=== PATIENT | female | born 1995 | race Two or more races ===

== ENCOUNTER → 2018-10-01 | Outpatient (CLI) | payer OTHER ==
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
--- NOTE | 2018-10-02 08:23 | RADRPT ---
PROCEDURE: XR hip and pelvis CLINICAL INDICATION: Hip pain. TECHNIQUE: 6 weightbearing views of the right hip including pelvis are available for review. COMPARISON: None. FINDINGS: There is no acute fracture or dislocation. There is flattening of the right femoral head with patchy sclerotic changes and moderate osteoarthritic changes of femoral acetabular joint. Left hip joint is unremarkable. Bilateral sacroiliac joints are symmetric and normal. IMPRESSION: 1. Flattening of the right femoral head with patchy sclerotic changes, likely sequela of avascular n ecrosis with associated moderate osteoarthritis of the right hip joint. RPTAT: DD Physician Deepika Date Time Electronically viewed and signed by Physician Deepika on 10/02/2018 08:22 /
== END | disposition home or self-care (01) ==
LOC: HKI 11:45
PROVIDERS: ATTEND Orthopaedic Surgery Adult Reconstructive Orthopaedic Surgery
DX: M25.551 Pain in right hip (principal)
CPT/HCPCS: 73502; Z7500; G0463

== ENCOUNTER → 2018-10-19 | Outpatient (CLI) | payer OTHER ==
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
== END | disposition home or self-care (01) ==
LOC: HKI 14:53
PROVIDERS: ATTEND Orthopaedic Surgery Adult Reconstructive Orthopaedic Surgery
DX: M25.551 Pain in right hip (principal)
CPT/HCPCS: G0463

== ENCOUNTER → 2018-12-21 | Outpatient (CLI) | payer OTHER ==
--- NOTE | 2018-12-21 16:49 | CONS ---
Consult Date/Type/Reason Admit Date/Time Initial Consult Date Date/Time of Note DATE: 12/21/18 TIME: 16:44 Subjective Sherin Mejia is here today with AVN of the right hip. The patient has been having problems for the last several years. The patient's pain is 8/10. The patient is here for preoperative visit. Objective Vitals Weight: 170 pounds Height: 5 feet 5 inches BMI: 28.3 Temperature: 98.2 Heart Rate: 84 Blood Pressure: 137/85 Respiratory Rate: 14 Exam General: Awake, alert, in no acute distress, pleasant and cooperative Heart: regular rhythm Lungs: breathing comfortably, no tachypnea or dyspnea Musculoskeletal: Well developed female in no apparent distress. 3 well-healed small incisions along the lateral aspect of the proximal thigh. There is a well healed incision over the anterior hip classic Rich-Bourne approach. There are no signs of infection such as erythema, fluctuance, tenderness to palpation. Gait demonstrates a non-Trendelenburg with an antalgic components and large short leg component. Standing, the pelvis is oblique and supine there is a true leg length discrepancy, with the right leg 2 cm short. No tenderness over trochanteric bursa or IT band. ----- Range of motion: Flexion: 80 Extension: 0 Internal rotation: 10 External rotation: 30 Abduction: 20 Adduction: 10 degree abduction contracture ----- Sitting there is no pelvic obliquity. Pain at the extremes of motion of the affected hip. Skin was intact throughout both lower extremities. Sensation intact to light touch in a sural, saphenous, deep peroneal, superficial peroneal, medial and lateral plantar nerve distribution. Neurovascular exam showed 5/5 strength in the abductors, quads, EHL/tibialis anterior/gastroc. Normal and symmetrical pulses were palpated in both the dorsalis pedis and posterior tibial arteries. There is no sign of venous stasis. Results/Medications Imaging The patient received a full set of films and personally reviewed by myself today in clinic including an AP pelvis and an AP and lateral of the affected hip. The hip is reduced. There is complete loss of joint space. With avascular necrosis and collapse of the femoral head. Rami are intact with no signs of previous fracture. Pubic symphysis is intact. SI joints are intact. There is osteophyte formation. There is subchondral sclerosis. There are subchondral cysts. There is no significant deformity of the the proximal femur, femoral neck. The pelvis is in continuity. Bone quality radiographically: good. Assessment/Plan Hospital Course (Demo Recall) The patient has AVN with femoral collapse of the right hip. The patient does want to proceed with a right total hip arthroplasty. Benefits and risks reviewed with the patient. Emphasis was placed on the high likely need of revision in the future because of where secondary to her young age. Medical Clearance pending. ----- A lengthy discussion was held, where the patient was told that if and when the symptoms are intolerable, elective total hip replacement should be considered. The operative procedure was explained using diagrams and/or three-dimensional models. The rehabilitation, the potential risks, benefits and alternatives were discussed at length. Specific risks discussed included but were not limited to excessive blood loss and the need for transfusion and therefore the risk of transmissible disease or transfusion reaction, deep infection and the potential need for repetitive debridements, implant removal, long-term antibiotic therapy, possibly requiring deep venous access, leg-length discrepancy, dislocation, possibly recurrent, with the need for closed versus open reduction, bracing, femoral or acetabular fracture and the need for further surgery for fixation, neurovascular injury with temporary or permanent numbness, tingling, weakness or paralysis, deep venous thrombosis, pulmonary embolism and , persistent pain, weakness, or limp, late aseptic loosening and the need for revision, polyethylene wear-induced osteolysis and related problems, and finally, a wide variety of unanticipated medical problems. The opportunity to ask questions and address any concerns was provided. The patient would like to proceed with scheduling. Face to Face Evaluation for Home Health Care: This is to certify that after date of planned surgery patient will be in need of intermittent retirement care, physical therapy and/or occupational therapy as patient will be home bound. This patient is under my care and I have authorized the services on this plan of care and will periodically review the plan. Plan: Right ABDIAZIZ VTE risk stratification: Average VTE prophylaxis: ASA 81 mg twice daily Diabetes management: None Pain control: Standard Telemetry: No MRSA: Pending JH FOOTE MD Dec 21, 2018 16:49
--- NOTE | 2018-12-23 11:17 | RADRPT ---
PROCEDURE: XR right Hip and pelvis. CLINICAL INDICATION: Hip pain. TECHNIQUE: AP and frog leg lateral views of the right hip and AP view of the pelvis were obtained. COMPARISON: None. FINDINGS: Osseous structures are intact. Again noted is flattening of the right femoral head with patchy sclero tic changes similar to the prior exam. Moderate degenerative changes of the right hip joint are again noted. The left hip joint appears normal. No soft tissue abnormalities are seen. IMPRESSION: 1. Flattening of the right femoral head with patchy sclerosis, similar to the prior examination and l ikely representing avascular necrosis. Moderate degenerative changes of the right hip, unchanged. RPTAT: AAEE Physician Harry Date Time Electronically viewed and signed by Physician Harry on 12/23/2018 11:17 RF/
== END | disposition home or self-care (01) ==
LOC: HKI 13:54
PROVIDERS: ATTEND Orthopaedic Surgery Adult Reconstructive Orthopaedic Surgery
DX: Z01.818 Encounter for other preprocedural examination (principal)
CPT/HCPCS: 73502; Z7500; G0463

== ENCOUNTER 2018-12-29 05:43 | Inpatient (IN) | payer OTHER ==
[2018-12-24 13:42] VITALS: BMI 25.9
[2018-12-28 12:00] VITALS: BMI 26.7
[2018-12-29] VITALS (28 sets, daily range): BP systolic 96–124; BP diastolic 41–74; PULSE 72–130; RESP 11–24; Ht 165.1 cm; Wt 74.1 kg
[~2018-12-29] VITALS: Ht 165.1 cm; Wt 74.1 kg
[2018-12-29] MEDS ORDERED: ACETAMINOPHEN 1000MG/100ML IV 100 ML IVPB ONE (06:30)
[2018-12-29] MEDS ORDERED: POLYMYXIN/BACITRACIN 1L IRRIG ONE (06:46)
[2018-12-29] MEDS ORDERED: LACTATED RINGER'S 1,000 ML IV* SCH (07:00)
[2018-12-29] MEDS ORDERED: DESFLURANE 15 MIN ONE (07:00)
[2018-12-29] MEDS ORDERED: CEFAZOLIN 2 GM/50 ML (PMX) 50 ML IVPB ONE (07:00)
[2018-12-29] MEDS ORDERED: TRANEXAMIC ACID 1GM/100ML(PMX) 100 ML AT CLOSING IVPB ONE (07:00)
[2018-12-29] MEDS ORDERED: CELECOXIB 200 MG CAP PO ONE (07:00)
[2018-12-29] MEDS ORDERED: DEXAMETHASONE 4 MG/ML 1 ML INJ IV ONE (07:00)
[2018-12-29] MEDS ORDERED: ONDANSETRON 4 MG INJ IV ONE (07:00)
[2018-12-29] MEDS ORDERED: ACETAMINOPHEN 500 MG TAB PO ONE (07:00)
[2018-12-29] MEDS ORDERED: LANSOPRAZOLE 30 MG CAP PO ONE (07:00)
--- NOTE | 2018-12-29 07:16 | PREAC ---
Date/Time of Note Date/Time of Note DATE: 12/29/18 TIME: 07:15 Anesthesia Eval and Record Evaluation Time Pre-Procedure Interview DATE: 12/29/18 TIME: 07:15 Age 23 Sex female NPO: 8 hrs Preoperative diagnosis R Hip OA Planned procedure R THR Past Medical History Past Medical History: Includes GI: Obesity Surgery & Anesthesia Issues No known issue Meds Anticoagulation: No Beta Luis within 24 hr: No Reason Beta Luis not given: Pt. not on B-Luis No Active Prescriptions or Reported Meds Current Medications Lactated Ringer's 1,000 ml @ 125 mls/hr Q8H IV* ; Start 12/29/18 at 07:00; Stop 12/29/18 at 19:00 Cefazolin Sodium/ Dextrose 50 ml @ 100 mls/hr PRE-OP ONCE IVPB ; Start 12/29/18 at 07:00; Stop 12/29/18 at 07:29 Tranexamic Acid 100 ml @ 200 mls/hr PRE-OP ONCE IVPB ; Start 12/29/18 at 07:00; Stop 12/29/18 at 07:29 Tranexamic Acid 100 ml @ 200 mls/hr AT CLOSING ONCE IVPB ; Start 12/29/18 at 07:00; Stop 12/29/18 at 07:29 Ropivacaine/ Clonidine/ Epinephrine/ Ketorolac Tromethamine/ Sodium Chloride INTRA-OP INJ ; Start 12/29/18 at 16:30; Stop 12/29/18 at 19:00 Meds reviewed: Yes Allergies Coded Allergies: No Known Allergy (Unverified , 12/29/18) Allergies Reviewed: Yes Labs/Studies Labs Reviewed: Reviewed by anesthesiologist Blood Bank Test 12/28/18 12:09 Antibody Screen NEGATIVE Blood Type A POSITIVE test: Negative Pre-procedure Exam Last vitals Vital Signs Date Temp Pulse Resp B/P (MAP) Pulse Ox O2 O2 Flow FiO2 Time Delivery Rate 12/29/18 97.8 85 18 124/74 98 06:48 (91) Airway: Adequate mouth opening, Adequate thyromental dist Mallampati: Mallampati II Teeth: Normal Lung: Normal Heart: Normal ASA Physical Status ASA physical status: 2 Emergency: None Planned Anesthetic General/MAC: ETT Neuraxial: Spinal Planned Pain Management Sub-arachniod narcotics Pre-operative Attestations Prior to commencing anesthesia and surgery, the patient was re-evaluated, there was verification of: *The patient's identity *The results of appropriate recent lab work and preoperative vital signs *The above evaluation not changing prior to induction *Anesthetic plan, risk benefits, alternative and complications discussed with patient/family; questions answered; patient/family understands, accepts and wis hes to proceed. APRIL SHARIF Dec 29, 2018 07:16
--- NOTE | 2018-12-29 07:21 | HPN ---
Date/Time of Note Date/Time of Note DATE: 12/29/18 TIME: 07:21 Interval H&P Admission Note Pt. seen H&P reviewed: No system changes Patient denies fever, chills, shortness of breath, chest pain, nausea/vomiting, constipation, diarrhea, numbness, and tingling. MUSCULOSKELETAL: Right extremity Skin intact Sensation intact to light touch in a sural, saphenous, deep peroneal, superficial peroneal, medial and lateral plantar nerve distribution. Motor is intact, patient able to dorsiflex and plantarflex ankle and extend and flex great toe. Dorsalis Pedis pulse +2, Brisk capillary refill. Compartments are soft. Calves non-tender to palpation bilaterally. JH FOOTE MD Dec 29, 2018 07:21
[2018-12-29] MEDS ORDERED: MIDAZOLAM 1 MG/ML 2 ML INJ ONE ×2 (07:26→10:52)
[2018-12-29] MEDS ORDERED: morphine SULFATE/PF (10 MG/10 ML) INJ ONE (07:28)
[2018-12-29] MEDS ORDERED: ALBUTEROL 0.083% (NEB) 2.5 MG/3 ML AMP HHN PRN (07:30)
[2018-12-29] MEDS ORDERED: ONDANSETRON 4 MG INJ IV PRN (07:30)
[2018-12-29] MEDS ORDERED: MEPERIDINE 25 MG INJ IV PRN (07:30)
[2018-12-29] MEDS ORDERED: METOCLOPRAMIDE 10 MG INJ IV PRN (07:30)
[2018-12-29] MEDS ORDERED: HYDROmorphONE 1 MG/5 ML IV SYRINGE IV PRN ×2 (07:30)
[2018-12-29] MEDS ORDERED: FENTAnyl 50 MCG/ML VIAL IV PRN ×3 (07:30)
[2018-12-29] MEDS ORDERED: VANCOMYCIN 1 GM (PMX) 250 ML ONE (07:31)
[2018-12-29] MEDS ORDERED: PHENYLephrine 10 MG INJ ONE (07:51)
[2018-12-29] MEDS ORDERED: VANCOMYCIN 1 GM (PMX) 250 ML IVPB ONE (08:00)
[2018-12-29] MEDS: TRANEXAMIC ACID 1GM/100ML(PMX) 100 ML PRE-OP IVPB ONE ×2 (08:35→10:53)
[2018-12-29] MEDS ORDERED: POLYMYXIN/BACITRACIN 1L IRRIG IRR ONE (08:53)
[2018-12-29] MEDS ORDERED: SUCCINYLCHOLINE CHLORIDE 100 MG/5 ML SYG IV ONE (09:03)
[2018-12-29] MEDS ORDERED: LIDOCAINE 1% (MDV) 20 ML INJ ONE (09:03)
[2018-12-29] MEDS ORDERED: ROCURONIUM 50 MG INJ ONE (09:03)
[2018-12-29] MEDS ORDERED: CEFAZOLIN 1 GM INJ ONE (09:03)
[2018-12-29] MEDS ORDERED: PROPOFOL 20 ML ONE (09:03)
[2018-12-29] MEDS ORDERED: SUGAMMADEX SODIUM 200 MG/2 ML VIAL IV ONE (12:01)
[2018-12-29] MEDS: DIPHENHYDRAMINE 50 MG INJ IV PRN ×2 (12:24→12:55)
[2018-12-29] MEDS: LACTATED RINGER'S 1,000 ML IV SCH ×2 (12:27→17:35)
[2018-12-29] MEDS ORDERED: DOCUSATE SODIUM 100 MG CAP PO ONE ×2 (12:30→13:29)
[2018-12-29] MEDS ORDERED: NALOXONE (0.4 MG/ML) INJ IV PRN (12:30)
[2018-12-29] MEDS ORDERED: MAGNESIUM HYDROXIDE 30ML CUP PO PRN (12:30)
[2018-12-29] MEDS ORDERED: NACL 0.9% 3 ML SYG IV SCH (12:30)
[2018-12-29] MEDS: HYDROmorphONE 1 MG/5 ML IV SYRINGE IV PRN ×2 (12:30→12:37)
[2018-12-29] MEDS ORDERED: NA PHOSPHATE/BIPHOS 133 ML ENEMA PR PRN (12:30)
[2018-12-29] MEDS ORDERED: oxyCODONE 5 MG TAB PO PRN (12:30)
[2018-12-29] MEDS ORDERED: DIPHENHYDRAMINE 50 MG INJ IV PRN (12:30)
[2018-12-29] MEDS ORDERED: BETHANECHOL 25 MG TAB PO PRN (12:30)
[2018-12-29] MEDS ORDERED: BISACODYL 10 MG SUPP PR PRN (12:30)
[2018-12-29] MEDS: CEFAZOLIN 2 GM/50 ML (PMX) 50 ML IVPB SCH ×2 (13:26→22:05)
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
[2018-12-29] MEDS: VANCOMYCIN 1 GM (PMX) 250 ML IVPB SCH (17:19)
[2018-12-29] MEDS: GABAPENTIN 300 MG CAP PO SCH (22:05)
[2018-12-29] MEDS: HYDROmorphONE 1 MG/ML SYG IV PRN (22:13)
[2018-12-29] MEDS: KETOROLAC 15 MG INJ IV PRN (23:33)
[2018-12-30 00:10] VITALS: BP 112/56; PULSE 83; RESP 19
[2018-12-30] MEDS: HYDROmorphONE 1 MG/ML SYG IV PRN (04:44)
[2018-12-30] MEDS: KETOROLAC 15 MG INJ IV PRN ×2 (04:44→10:40)
[2018-12-30] MEDS: CEFAZOLIN 2 GM/50 ML (PMX) 50 ML IVPB SCH (06:00)
[2018-12-30] MEDS: PANTOPRAZOLE (EC) 40 MG TAB PO SCH (06:35)
[2018-12-30] MEDS: VANCOMYCIN 1 GM (PMX) 250 ML IVPB SCH (06:35)
[2018-12-30] MEDS ORDERED: DEXAMETHASONE 10 MG/ML 1 ML INJ IV ONE (07:00)
--- NOTE | 2018-12-30 07:21 | PAC ---
Date/Time of Note Date/Time of Note DATE: 12/30/18 TIME: 07:21 Post-Anesthesia Notes Post-Anesthesia Note Last documented vital signs Vital Signs Date Temp Pulse Resp B/P (MAP) Pulse Ox O2 O2 Flow FiO2 Time Delivery Rate 12/30/18 98.3 83 19 112/56 99 00:10 (74) 12/29/18 Room Air 16:35 Activity: WNL Respiratory function: WNL Cardiovascular function: WNL Mental status: Baseline Pain reasonably controlled: Yes Hydration appropriate: Yes Nausea/Vomiting absent: Yes APRIL SHARIF Dec 30, 2018 07:21
[2018-12-30] MEDS ORDERED: CEFAZOLIN 2 GM/50 ML (PMX) 50 ML IVPB SCH (07:30)
[2018-12-30 08:20] VITALS: BP 114/55; PULSE 95; RESP 18
--- NOTE | 2018-12-30 08:58 | PN ---
Date/Time of Note Date/Time of Note DATE: 12/30/18 TIME: 08:51 Assessment/Plan Lines/Catheters IV Catheter Type (from Nrsg): Peripheral IV Hyatt in Place (from Nrsg): No Assessment/Plan Chief Complaint/Hosp Course POD#1 s/p primary right ABDIAZIZ. -Post op H&H stable -PT/OT. Posterior Hip Precautions -Joints pain control protocol -DVT prophylaxis: SCD's, ASA 81 mg twice daily -Weight bearing status: as tolerated -Post-op XR ordered -Abx: 24h vanc/ancef -Diet: ADAT -Hyatt: DC'd today -Discharge planning consult Planned Discharge Date: Today versus tomorrow Discharge to home with home health Subjective 24 Hr Interval Summary Patient doing well No acute events overnight Pain is moderately well controlled Exam/Review of Systems Vital Signs Vitals Vital Signs Date Temp Pulse Resp B/P (MAP) Pulse Ox O2 O2 Flow FiO2 Time Delivery Rate 12/30/18 98.8 95 18 114/55 99 08:20 (74) 12/29/18 Room Air 16:35 Intake and Output 12/29/18 12/29/18 12/30/18 1515:00 23:00 07:00 IntakeIntake Total 2900 ml 850 ml 1070 ml OutputOutput Total 1300 ml 1450 ml 1000 ml BalanceBalance 1600 ml -600 ml 70 ml Exam Free Text/Dictation Right lower extremity: Dressing: clean, dry, and intact, no erythema Sensation intact to light touch in a sural, saphenous, deep peroneal, superficial peroneal, medial and lateral plantar nerve distribution. Motor is intact, patient able to dorsiflex and plantarflex ankle and extend and flex great toe. Dorsalis Pedis pulse +2, Brisk capillary refill. Compartments are so ft. Calves non-tender to palpation bilaterally. Results Result Diagram: 12/30/18 0450 12/30/18 0450 JH FOOTE MD Dec 30, 2018 08:58
[2018-12-30] MEDS ORDERED: DOCUSATE SODIUM 100 MG CAP PO SCH (09:00)
[2018-12-30] MEDS: ASPIRIN (EC) 81 MG TAB PO SCH ×2 (09:26→21:35)
[2018-12-30] MEDS: oxyCODONE 5 MG TAB PO PRN ×4 (09:27→21:36)
[2018-12-30] MEDS: DOCUSATE SODIUM 100 MG CAP PO SCH ×2 (09:34→21:36)
[2018-12-30] MEDS ORDERED: POTASSIUM CHLORIDE (SR) 20 MEQ TAB PO STA (11:50)
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
[2018-12-30] MEDS ORDERED: ONDANSETRON 4 MG INJ IV PRN (12:30)
[2018-12-30] MEDS: LACTATED RINGER'S 1,000 ML IV SCH (12:42)
[2018-12-30] MEDS: ACETAMINOPHEN 500 MG TAB PO SCH ×2 (13:28→21:36)
[2018-12-30 15:42] VITALS: BP 113/58; PULSE 95; RESP 18
[2018-12-30 20:30] VITALS: BP 111/58; PULSE 85; RESP 18
[2018-12-30] MEDS: GABAPENTIN 300 MG CAP PO SCH (21:35)
[2018-12-31 02:04] VITALS: BP 106/56; PULSE 84; RESP 18
[2018-12-31] MEDS: PANTOPRAZOLE (EC) 40 MG TAB PO SCH (05:18)
[2018-12-31] MEDS: ACETAMINOPHEN 500 MG TAB PO SCH ×3 (05:18→21:45)
[2018-12-31] MEDS: oxyCODONE 5 MG TAB PO PRN ×4 (07:27→19:50)
[2018-12-31] MEDS: DOCUSATE SODIUM 100 MG CAP PO SCH ×2 (07:43→20:21)
[2018-12-31] MEDS: ASPIRIN (EC) 81 MG TAB PO SCH ×2 (07:43→20:21)
[2018-12-31] MEDS: SENNA/DOCUSATE NA (8.6MG/50MG) TAB PO PRN (07:58)
[2018-12-31 08:13] VITALS: BP 106/62; PULSE 87; RESP 18
--- NOTE | 2018-12-31 08:13 | PN ---
Date/Time of Note Date/Time of Note DATE: 12/31/18 TIME: 08:06 Assessment/Plan Lines/Catheters IV Catheter Type (from Nrs): Saline Lock Hyatt in Place (from Nrs): No Assessment/Plan Chief Complaint/Hosp Course POD#2 s/p primary right ABDIAZIZ. This morning the patient is having chest pain. It is difficult for her to take a deep breath. Vitals are stable. Her oxygen saturation is within normal limits without any O2 supplementation. Blood pressure stable. She is not tachycardic. Of note the patient has not had a bowel movement in 3 days. She is never had this pain before. She has acute anemia secondary to postoperative blood loss and hemodilution. At this time I would not recommend a blood transfusion secondary to increased risk of infection, the patient's vitals are stable. We will continue to monitor hemoglobin closely to determine if he continues to decrease. If cardiac workup is negative and patient continues to have symptoms we will likely request a CT angiogram to evaluate and rule out a pulmonary embolism. -Medicine has ordered EKG, chest x-ray, troponins. We will continue to follow for this chest pain. -Post op H&H will continue to be monitored -PT/OT. Posterior Hip Precautions -Joints pain control protocol -DVT prophylaxis: SCD's, ASA 81 mg twice daily -Weight bearing status: as tolerated -Post-op XR ordered -Abx: 24h vanc/ancef -Diet: ADAT -Hyatt: DC'd -Discharge planning consult Planned Discharge Date: To be determined Discharge to home with home health Subjective 24 Hr Interval Summary Patient did very well yesterday. Pain was well controlled yesterday. She did well with physical therapy. However this morning she began to complain of chest pain and epigastric pain. States it is difficult for her to take a deep breath. The patient's vitals remained stable the nursing staff alerted medicine who then ordered several tests to workup chest pain. Exam/Review of Systems Vital Signs Vitals Vital Signs Date Temp Pulse Resp B/P (MAP) Pulse Ox O2 O2 Flow FiO2 Time Delivery Rate 12/31/18 98.2 84 18 106/56 97 02:04 (73) 12/29/18 Room Air 16:35 Intake and Output 12/30/18 12/30/18 12/31/18 1515:00 23:00 07:00 IntakeIntake Total 900 ml 920 ml 200 ml BalanceBalance 900 ml 920 ml 200 ml Exam Free Text/Dictation Right lower extremity: Dressing: clean, dry, and intact, no erythema Sensation intact to light touch in a sural, saphenous, deep peroneal, superficial peroneal, medial and lateral plantar nerve distribution. Motor is intact, patient able to dorsiflex and plantarflex ankle and extend and flex great toe. Dorsalis Pedis pulse +2, Brisk capillary refill. Compartments are soft. Calves non-tender to palpation bilaterally. Results Result Diagram: 12/31/18 0447 12/31/18 0447 JH FOOTE MD Dec 31, 2018 08:13
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
[2018-12-31] MEDS: SOD FERRIC GLUC COMPLX 125 MG in SOD CHLORIDE 0.9% 100 ML IVPB SCH (15:12)
[2018-12-31 15:39] VITALS: BP 111/55; PULSE 108; RESP 18
[2018-12-31 20:05] VITALS: BP 118/69; PULSE 101; RESP 18
[2018-12-31] MEDS: GABAPENTIN 300 MG CAP PO SCH (20:21)
[2019-01-01] MEDS: oxyCODONE 5 MG TAB PO PRN ×5 (00:07→15:28)
[2019-01-01 03:46] VITALS: BP_SYST 115; BP_DIAS 59; BP_DIAS 89; PULSE 100; RESP 18
[2019-01-01] MEDS: ACETAMINOPHEN 500 MG TAB PO SCH ×2 (06:21→14:00)
[2019-01-01] MEDS: PANTOPRAZOLE (EC) 40 MG TAB PO SCH (06:21)
[2019-01-01 07:35] VITALS: BP 117/78; PULSE 92; RESP 19
--- NOTE | 2019-01-01 07:41 | PN ---
Date/Time of Note Date/Time of Note DATE: 01/01/19 TIME: 07:36 Assessment/Plan Lines/Catheters IV Catheter Type (from Nrsg): Saline Lock Hyatt in Place (from Nrsg): No Assessment/Plan Chief Complaint/Hosp Course POD#3 s/p primary right ABDIAZIZ. The patient's chest pain completely resolved after a bowel movement yesterday. She denies any chest pain, shortness of breath, lightheadedness, dizziness. She is able to participate in physical therapy without any dizziness, lightheadedness, or shortness of breath. She does have acute on chronic anemia secondary to blood loss. She is asymptomatic. -Post op H&H is stable. Overall minimal change since postop day 1. Patient receiving IV iron while admitted. Will be discharged on oral iron supplement. -PT/OT. Posterior Hip Precautions -Joints pain control protocol -DVT prophylaxis: SCD's, ASA 81 mg twice daily -Weight bearing status: as tolerated -Post-op XR ordered -Discharge planning consult Planned Discharge Date: Today Discharge to home with home health Subjective 24 Hr Interval Summary Patient doing well No acute events overnight Pain is well controlled. Chest pain resolved yesterday after bowel movement.. Patient denies any dizziness or lightheadedness when ambulating. Exam/Review of Systems Vital Signs Vitals Vital Signs Date Temp Pulse Resp B/P (MAP) Pulse Ox O2 O2 Flow FiO2 Time Delivery Rate 01/01/19 98.8 100 18 115/89 98 03:46 (98) 12/31/18 6.0 15:39 12/31/18 Nasal 08:13 Cannula Intake and Output 12/31/18 12/31/18 01/01/19 1515:00 23:00 07:00 IntakeIntake Total 240 ml 825 ml 100 ml OutputOutput Total 750 ml 1900 ml 1000 ml BalanceBalance -510 ml -1075 ml -900 ml Exam Free Text/Dictation Right lower extremity: Dressing: clean, dry, and intact, no erythema. Thigh is swollen. Sensation intact to light touch in a sural, saphenous, deep peroneal, superficial peroneal, medial and lateral plantar nerve distribution. Motor is intact, patient able to dorsiflex and plantarflex ankle and extend and flex great toe. Dorsalis Pedis pulse +2, Brisk capillary refill. Compartments are soft. Calves non-tender to palpation bilaterally. Results Result Diagram: 01/01/19 0435 01/01/19 0435 HJ FOOTE MD Jan 01, 2019 07:41
--- NOTE | 2019-01-01 07:43 | PDOCDIS ---
Discharge Instructions CONDITION [id number] Patient Condition: [id number] Good - Patient and patient's mother was instructed to return the hospital if she is having chest pain, shortness of breath, dizziness that does not resolve. Patient was also handed [facility] hip and knee total hip arthroplasty patient instruction handout. HOME CARE INSTRUCTIONS: [id number] Diet Instructions: [id number] Regular ACTIVITY: [id number] Activity Restrictions: [id number] Slowly Increase Activity Avoid heavy lifting Weight Bearing (Posterior hip precautions) [id number] Bathing Restrictions: [id number] Shower FOLLOW UP/APPOINTMENTS Follow-up Plan 2 weeks JH FOOTE MD Jan 01, 2019 07:43
[2019-01-01] MEDS ORDERED: OXYC-481 PO (07:47)
[2019-01-01] MEDS ORDERED: Acetaminophen PO (07:47)
[2019-01-01] MEDS ORDERED: ASPI-1044 PO (07:47)
[2019-01-01] MEDS ORDERED: GABA300C16 PO (07:47)
[2019-01-01] MEDS ORDERED: DOCU-144 PO ×2 (07:47→10:57)
[2019-01-01] MEDS ORDERED: FERR325T5 PO ×2 (07:49→10:57)
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
[2019-01-01] MEDS: DOCUSATE SODIUM 100 MG CAP PO SCH (08:50)
[2019-01-01] MEDS: ASPIRIN (EC) 81 MG TAB PO SCH (08:50)
[2019-01-01] MEDS ORDERED: UDMOM PO (10:57)
[2019-01-01] MEDS ORDERED: SIME80TA60 PO (10:59)
[2019-01-01] MEDS: SENNA/DOCUSATE NA (8.6MG/50MG) TAB PO PRN (11:57)
[2019-01-01] MEDS: SOD FERRIC GLUC COMPLX 125 MG in SOD CHLORIDE 0.9% 100 ML IVPB SCH (12:55)
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
[2019-01-01 15:30] VITALS: BP 122/73; PULSE 116; RESP 18
== END 2019-01-01 15:35 | disposition home health service (06) | DRG 470 ==
LOC: INTOOBSV 05:43 → REC 05:43 → MS1 13:40 → OBSVTOIN 23:21
PROVIDERS: ADMIT Orthopaedic Surgery Adult Reconstructive Orthopaedic Surgery; ATTEND Orthopaedic Surgery Adult Reconstructive Orthopaedic Surgery
PROC: 0SR904A Replacement of Right Hip Joint with Ceramic on Polyethylene Synthetic Substitute, Uncemented, Open Approach (ICD-10-PCS; principal; 2018-12-29 07:30)
DX: M87.251 Osteonecrosis due to previous trauma, right femur (principal); D62 Acute posthemorrhagic anemia; E66.9 Obesity, unspecified; Z68.27 Body mass index [BMI] 27.0-27.9, adult; M16.11 Unilateral primary osteoarthritis, right hip; E87.6 Hypokalemia; R07.89 Other chest pain; K59.00 Constipation, unspecified; Z79.82 Long term (current) use of aspirin
CPT/HCPCS: 71045; 72170; 73500; 73530; 80048; 81003; 83540; 84484; 85014; 85018; 85025; 85610; 86850; 86900; 86901; 86920; 87081; 87086; 88304; 88311; 93005; 97110; 97116; 97162; 97165; 97530; 97535; 99217; C1713; C1776; G0378; J0131; J0171; J0690; J0735; J1100; J1170; J1200; J1885; J2250; J2274; J2405; J2795; J2916; J3370; J7120

== ENCOUNTER → 2019-01-11 | Outpatient (CLI) | payer OTHER ==
[~2019-01-11] MED LIST: ASPI-1044 PO; Acetaminophen PO; DOCU-144 PO; FERR325T5 PO; GABA300C16 PO; OXYC-481 PO; SIME80TA60 PO; UDMOM PO
--- NOTE | 2019-01-11 15:40 | CONS ---
Consult Date/Type/Reason Admit Date/Time Initial Consult Date Date/Time of Note DATE: 01/11/19 TIME: 15:34 Subjective DOS: 12/29/18 Procedure: Right ABDIAZIZ 2 weeks s/p right ABDIAZIZ for traumatic AVN who returns today for follow up. The patient is doing well overall. Pain is moderate. She complains of groin pain as well as anterior knee pain. She had anterior knee pain prior to surgery however states it feels worse now. Feels that the operative leg is longer than the nonoperatively. Narcotic Pain medication: Yes, oxycodone Gait Aids: Walker Pain better than before surgery: At times Pleased with outcome. Objective Vitals Weight: 162 pounds Height: 5 feet 5 inches Temperature: 90.4 Heart Rate: 94 Blood Pressure: 134/62 Respiratory Rate: 12 Exam General: Alert, oriented x3. No Acute Distress. Heart: Regular rate and rhythm. Lungs: No respiratory distress. No accessory muscle use. MUSCULOSKELETAL: Right lower Extremity: Incision well-healed. No skin breakdown, no surrounding erythema. Sensation intact to light touch in a sural, saphenous, deep peroneal, superficial peroneal, medial and lateral plantar nerve distribution. Motor is intact, patient able to dorsiflex and plantarflex ankle and extend and flex great toe. Dorsalis Pedis pulse +2, Brisk capillary refill. Compartments are soft. Tender to palpation over the patella tendon. Remainder of knee is nontender. No effusion. Full range of motion of the knee. Knee is stable. Rises from seated position without difficulty. Gait: Moderate pace. Mild limp. Old mild Trendelenburg. Old walker for gait aids. Results/Medications Home Meds Active Scripts Simethicone* (Mylicon*) 80 Mg Tab, 80 MG PO TID PRN for .GAS for 30 Days, #90 TAB Prov:NABIL ANGEL MD 01/01/19 Magnesium Hydroxide* (Mcintyre' MOM*) 30 Ml Susp, 30 ML PO HS PRN for .CONSTIPATION for 30 Days, #1 BOTTLE Prov:NABIL ANGEL MD 01/01/19 Ferrous Sulfate (Ferrous Sulfate) 325 Mg Tablet.dr, 325 MG PO BID for 30 Days, #60 TAB 1 Refill Prov:NABIL ANGEL MD 01/01/19 Docusate Sodium* (Colace*) 100 Mg Capsule, 200 MG PO BID PRN for CONSTIPATION for 20 Days, #40 CAP Prov:NABIL ANGEL MD 01/01/19 Oxycodone Hcl* (IR) (Roxicodone*) 5 Mg Tab, 5 MG PO Q4H PRN for .PAIN, #90 TAB Prov:JH FOOTE MD 01/01/19 Gabapentin* (Gabapentin*) 300 Mg Capsule, 300 MG PO QHS for 30 Days, CAP Prov:JH FOOTE MD 01/01/19 Aspirin Delayed Release (Aspirin Delayed Release) 81 Mg Tablet.dr, 81 MG PO BID for 42 Days Prov:JH FOOTE MD 01/01/19 [Acetaminophen Tab] 500 MG TAB No Conflict Check, 1000 MG PO Q8 for 7 Days, TAB Prov:JH FOOTE MD 01/01/19 Imaging Xrays obtained in clinic today and personally reviewed by myself: AP pelvis and AP/Lat of the right hip demonstrate hip s/p ABDIAZIZ with hip reduced. Components in good position and alignment. Calibrated x-ray demonstrates the operative leg is only 2 mm longer than the nonoperative leg using the teardrop as reference. Ischial tuberosities not reliable in patient as she had previous pelvic fracture. No signs of wear, osteolysis, loosening, component failure, or fracture. No acute complications. Assessment/Plan Hospital Course (Demo Recall) 23-year-old female doing well 2 weeks s/p right ABDIAZIZ. She also has patellar tendinitis on examination. Leg lengths are equal on radiographic examination. - After another week of home therapy she is to start outpatient therapy for both the right total hip and for right patella tendinitis. - Diclofenac gel for patella tendinitis - Posterior Hip precautions: Continue - DVT Prophylaxis: Aspirin 81 mg twice daily x4 more weeks - FU 4 weeks for repeat clinical and radiographic exam - Antibiotic dental prophylaxis for any cleaning or procedure JH FOOTE MD Jan 11, 2019 15:40
--- NOTE | 2019-01-14 07:31 | RADRPT ---
PROCEDURE: XR pelvis and right hip. CLINICAL INDICATION: pain TECHNIQUE: AP pelvis, AP and frog lateral views of the hip were performed. COMPARISON: 12/29/2018 FINDINGS: The patient is status post right hip replacement. There is appropriate position of the prosthesis. T here are postsurgical changes in the soft tissues. No acute fracture is noted. The left hip is normal. RPTAT: AA IMPRESSION: Postsurgical changes of the right hip status post hip replacement. Appropriate position of the prosthesis. Normal left hip. .Hans Lemos MD, MD Date Time Electronically viewed and signed by .Hans Lemos MD, MD on 01/14/2019 07:31 .S/
== END | disposition home or self-care (01) ==
LOC: HKI 14:24
PROVIDERS: ATTEND Orthopaedic Surgery Adult Reconstructive Orthopaedic Surgery
DX: M25.561 Pain in right knee (principal); R10.31 Right lower quadrant pain; Z96.641 Presence of right artificial hip joint
CPT/HCPCS: 73502

== ENCOUNTER → 2019-02-08 | Outpatient (CLI) | payer OTHER ==
--- NOTE | 2019-02-08 14:35 | CONS ---
Consult Date/Type/Reason Admit Date/Time Initial Consult Date Date/Time of Note DATE: 02/08/19 TIME: 14:32 Subjective DOS: 12/29/2018 Procedure: Right ABDIAZIZ 6 weeks s/p right ABDIAZIZ who returns today for follow up. The patient is doing well overall. Pain is minimal. Her biggest complaint is sensitivity around the incision. She feels much better overall. However she still continues to have anterior knee pain. Her leg length does feel more equal than at the last visit however she still notes her right leg feels a little longer than her left leg. Narcotic Pain medication: No Gait Aids: Cane Pain better than before surgery: Yes Pleased with outcome. Objective Vitals Weight: 155 pound Height: 5 foot 5 inches Temperature: 98.3 Heart Rate: 80 Blood Pressure: 135/83 Respiratory Rate: 12 Exam General: Alert, oriented x3. No Acute Distress. Heart: Regular rate and rhythm. Lungs: No respiratory distress. No accessory muscle use. MUSCULOSKELETAL: Right lower Extremity: Incision well-healed. No skin breakdown, no surrounding erythema. Sensation intact to light touch in a sural, saphenous, deep peroneal, superficial peroneal, medial and lateral plantar nerve distribution. Motor is intact, patient able to dorsiflex and plantarflex ankle and extend and flex great toe. Dorsalis Pedis pulse +2, Brisk capillary refill. Compartments are soft. Rises from seated position without difficulty. Gait: Quick pace. Mild limp. Mild Trendelenburg. Cane gait aids. Results/Medications Home Meds Active Scripts Simethicone* (Mylicon*) 80 Mg Tab, 80 MG PO TID PRN for .GAS for 30 Days, #90 TAB Prov:NABIL ANGEL MD 01/01/19 Magnesium Hydroxide* (Mcintyre' MOM*) 30 Ml Susp, 30 ML PO HS PRN for .CONSTIPA TION for 30 Days, #1 BOTTLE Prov:NABIL ANGEL MD 01/01/19 Ferrous Sulfate (Ferrous Sulfate) 325 Mg Tablet.dr, 325 MG PO BID for 30 Days, #60 TAB 1 Refill Prov:NABIL ANGEL MD 01/01/19 Docusate Sodium* (Colace*) 100 Mg Capsule, 200 MG PO BID PRN for CONSTIPATION for 20 Days, #40 CAP Prov:NABIL ANGEL MD 01/01/19 Oxycodone Hcl* (IR) (Roxicodone*) 5 Mg Tab, 5 MG PO Q4H PRN for .PAIN, #90 TAB Prov:JH FOOTE MD 01/01/19 Gabapentin* (Gabapentin*) 300 Mg Capsule, 300 MG PO QHS for 30 Days, CAP Prov:JH FOOTE MD 01/01/19 Aspirin Delayed Release (Aspirin Delayed Release) 81 Mg Tablet.dr, 81 MG PO BID for 42 Days Prov:JH FOOTE MD 01/01/19 [Acetaminophen Tab] 500 MG TAB No Conflict Check, 1000 MG PO Q8 for 7 Days, TAB Prov:JH FOOTE MD 01/01/19 Imaging Xrays obtained in clinic today and personally reviewed by myself: AP pelvis and AP/Lat of the right hip demonstrate hip s/p ABDIAZIZ with hip reduced. Components in good position and alignment. No signs of wear, osteolysis, loosening, component failure, or fracture. No acute complications. Leg lengths are essentially equal on x-ray. Images calibrated and at most are up to 1-2 mm different. Assessment/Plan Hospital Course (Demo Recall) 23-year-old female doing well 6 weeks s/p right ABDIAZIZ -We will begin physical therapy for right knee patella tendinitis and patellofemoral syndrome after next visit - Posterior Hip precautions: Continue - DVT Prophylaxis: Discontinue - FU 6 weeks for repeat clinical and radiographic exam - Antibiotic dental prophylaxis for any cleaning or procedure JH FOOTE MD February 08, 2019 14:35
--- NOTE | 2019-02-11 06:01 | RADRPT ---
PROCEDURE: Pelvis and right hip study CLINICAL INDICATION: Pain TECHNIQUE: AP pelvis and AP and frog lateral views of the right hip were performed. COMPARISON: Pelvis 12/29/2018 FINDINGS: There is a total right hip prosthesis in place without evidence of dislocation or loosening. No acute fractures. Left hip are unremarkable. Soft tissues unremarkable. IMPRESSION: Unremarkable total right hip prosthesis without acute fractures or malalignment. RPTAT:AAJJ Physician Lexie Date Time Electronically viewed and signed by Noelle Bose Physician on 02/11/2019 06:01 /
== END | disposition home or self-care (01) ==
LOC: HKI 13:31
PROVIDERS: ATTEND Orthopaedic Surgery Adult Reconstructive Orthopaedic Surgery
DX: Z47.1 Aftercare following joint replacement surgery (principal); Z96.641 Presence of right artificial hip joint
CPT/HCPCS: 73502

== ENCOUNTER → 2019-03-22 | Outpatient (CLI) | payer OTHER ==
--- NOTE | 2019-03-22 14:18 | CONS ---
Consult Date/Type/Reason Admit Date/Time Initial Consult Date Date/Time of Note DATE: 03/22/19 TIME: 14:13 Subjective DOS: 12/29/2018 Procedure: Right ABDIAZIZ 12 weeks s/p right ABDIAZIZ who returns today for follow up. The patient is doing well overall. Pain is none to minimal in her hip. She continues to have significant anterior knee pain. At last couple visits she was diagnosed with patellar tendon tendinitis. Physical therapy continues to work on her hip but she has not started the physical therapy for her patella tendinitis at this time. Narcotic Pain medication: No Gait Aids: Cane for longer distances Pain better than before surgery: Yes Pleased with outcome. Objective Vitals Weight: 155 pounds Height: 5 feet 5 inches Temperature: 98.1 Heart Rate: 91 Blood Pressure: 128/76 Respiratory Rate: 12 Exam General: Alert, oriented x3. No Acute Distress. Heart: Regular rate and rhythm. Lungs: No respiratory distress. No accessory muscle use. MUSCULOSKELETAL: Right lower Extremity: Incision healed. No skin breakdown, no surrounding erythema. Sensation intact to light touch in a sural, saphenous, deep peroneal, superficial peroneal, medial and lateral plantar nerve distribution. Motor is intact, patient able to dorsiflex and plantarflex ankle and extend and flex great toe. Dorsalis Pedis pulse +2, Brisk capillary refill. Compartments are soft. Full range of motion of the knee. There is no effusion. Joint lines are nontender to palpation. Tenderness to palpation over the patella tendon. Ligamentously stable. Rises from seated position without difficulty. Gait: Moderate to quick pace. No limp. No Trendelenburg. No gait aids. Results/Medications Home Meds Active Scripts Simethicone* (Mylicon*) 80 Mg Tab, 80 MG PO TID PRN for .GAS for 30 Days, #90 TAB Prov:NABIL ANGEL MD 01/01/19 Magnesium Hydroxide* (Mcintyre' MOM*) 30 Ml Susp, 30 ML PO HS PRN for .CONSTIPATION for 30 Days, #1 BOTTLE Prov:NABIL ANGEL MD 01/01/19 Ferrous Sulfate (Ferrous Sulfate) 325 Mg Tablet.dr, 325 MG PO BID for 30 Days, #60 TAB 1 Refill Prov:NABIL ANGEL MD 01/01/19 Docusate Sodium* (Colace*) 100 Mg Capsule, 200 MG PO BID PRN for CONSTIPATION for 20 Days, #40 CAP Prov:NABIL ANGEL MD 01/01/19 Oxycodone Hcl* (IR) (Roxicodone*) 5 Mg Tab, 5 MG PO Q4H PRN for .PAIN, #90 TAB Prov:JH FOOTE MD 01/01/19 Gabapentin* (Gabapentin*) 300 Mg Capsule, 300 MG PO QHS for 30 Days, CAP Prov:JH FOOTE MD 01/01/19 Aspirin Delayed Release (Aspirin Delayed Release) 81 Mg Tablet.dr, 81 MG PO BID for 42 Days Prov:JH FOOTE MD 01/01/19 [Acetaminophen Tab] 500 MG TAB No Conflict Check, 1000 MG PO Q8 for 7 Days, TAB Prov:JH FOOTE MD 01/01/19 Imaging Xrays obtained in clinic today and personally reviewed by myself: AP pelvis and AP/Lat of the right hip demonstrate hip s/p ABDIAZIZ with hip reduced. Components in good position and alignment. No signs of wear, osteolysis, loosening, component failure, or fracture. No acute complications. 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 Overall she is doing very well. She continues to make progress. Over short distances she does not use a gait aid and does not have a limp. When walking for longer distances she does use a cane at this time. Current knee pain secondary to patella tendinitis and patellofemoral syndrome. I believe starting therapy for this as well as continue to use diclofenac gel will help. If this does fail will likely order an MRI of the right knee in the future. - Physical therapy for right hip and right knee - Posterior Hip precautions: Discontinue - FU 3 months for repeat clinical and radiographic exam - Antibiotic dental prophylaxis for any cleaning or procedure JH FOOTE MD Mar 22, 2019 14:18
--- NOTE | 2019-03-29 09:40 | RADRPT ---
PROCEDURE: XR pelvis and right hip. CLINICAL INDICATION: pain TECHNIQUE: AP pelvis, AP and frog lateral views of the right hip were performed. COMPARISON: 02/08/2019 FINDINGS: There is normal mineralization and alignment. No acute fracture or osseous lesion is identified. The patient is status post right hip replacement with appropriate position of the prosthesis. The soft tissues are unremarkable. RPTAT: AA IMPRESSION: Status post right hip replacement. .Hans Lemos MD, MD Date Time Electronically viewed and signed by .Hans Lemos MD, on 03/29/2019 09:39 .S/
== END | disposition home or self-care (01) ==
LOC: HKI 13:12
PROVIDERS: ATTEND Orthopaedic Surgery Adult Reconstructive Orthopaedic Surgery
DX: Z47.1 Aftercare following joint replacement surgery (principal); Z96.641 Presence of right artificial hip joint
CPT/HCPCS: 73502